=== PATIENT | female | born 1990 | race Caucasian/White ===

== ENCOUNTER 2018-04-11 12:08 | Inpatient (IN) | payer OTHER, MEDICAID ==
[~2018-04-11] VITALS: Ht 180.3 cm; Wt 100.7 kg
[~2018-04-11 12:08] MED LIST: FOLI1 PO; MULT-1238 PO; OLAN5TAB5 PO
[2018-04-11 13:41] VITALS: BP 106/73
[2018-04-11] MEDS ORDERED: HALOPERIDOL 5 MG TABLET PO PRN (14:15)
[2018-04-11] MEDS ORDERED: ZOLPIDEM TARTRATE 10 MG TABLET PO PRN (14:15)
[2018-04-11] MEDS ORDERED: LORazepam 2 MG TABLET PO PRN (14:15)
[2018-04-11] MEDS ORDERED: DIVA500T35 PO (15:01)
[2018-04-11] MEDS ORDERED: QUET200T PO (15:01)
[2018-04-11] MEDS ORDERED: PNEUMOCOCCAL VACCINE POLYVALENT 0.5 ML VIAL [PPSV23] IM ONE (15:15)
[2018-04-11 16:19] VITALS: BP 116/80
[2018-04-11] MEDS: DIVALPROEX SODIUM 500 MG ER TABLET PO SCH (20:37)
[2018-04-12 01:50] VITALS: BP 102/61
[2018-04-12 08:30] VITALS: BP 106/60
[2018-04-12] MEDS: QUEtiapine FUMARATE 200 MG TABLET PO SCH ×2 (08:35→16:34)
[2018-04-12] MEDS: NICOTINE 14 MG/24 HOUR PATCH TD SCH (08:35)
[2018-04-12 08:50] LABS: CHOL/HDL RATIO 2.1 (3.9-5.7); CHOLESTEROL 111 mg/dL (131-200); FREE T4 (FREE THYROXINE) 1.24 ng/dL (0.76-1.46); HCG,QUANTITATIVE < 1 mIU/mL (0-6); HDL CHOLESTEROL 54 mg/dL (40-60); LDL CHOL (CALC.) 41 mg/dL (0-130); THYROID STIMULATING HORMONE 0.52 uIU/mL (0.36-3.74); TRIGLYCERIDES 79 mg/dL (15-150)
[2018-04-12 09:12] LABS: HEMOGLOBIN A1C 5.7 % (4.5-6.2)
[2018-04-12 16:15] VITALS: BP 104/60
[2018-04-12] MEDS: DIVALPROEX SODIUM 500 MG ER TABLET PO SCH (20:40)
[2018-04-13 01:17] VITALS: BP 103/62
[2018-04-13 08:06] VITALS: BP 104/71
[2018-04-13] MEDS: QUEtiapine FUMARATE 200 MG TABLET PO SCH ×2 (08:35→20:33)
[2018-04-13] MEDS: NICOTINE 14 MG/24 HOUR PATCH TD SCH (08:46)
[2018-04-13 16:03] VITALS: BP 109/60
[2018-04-13] MEDS: DIVALPROEX SODIUM 500 MG ER TABLET PO SCH (20:33)
[2018-04-14 06:16] VITALS: BP 102/60
[2018-04-14 07:55] LABS: BASOPHILS % (AUTO) 0.9 % (0.0-2.0); EOSINOPHILS % (AUTO) 4.2 % (1.0-6.0); HEMATOCRIT 36.9 % (36-46); HEMOGLOBIN 12.5 g/dL (12.0-16.0); LYMPHOCYTES # (AUTO) 1.7 K/uL (1.0-4.8); LYMPHOCYTES % (AUTO) 26.9 % (22.0-44.0); MEAN CORPUSCULAR HGB CONC 33.9 G/dL (31.0-37.0); MEAN CORPUSCULAR VOLUME 91 fL (80-100); MONOCYTES # (AUTO) 0.3 K/uL (0.1-1.0); MONOCYTES % (AUTO) 5.6 % (2.0-9.0); NEUTROPHILS # (AUTO) 3.9 K/uL (1.8-7.7); NEUTROPHILS % (AUTO) 62.4 % (40.0-70.0); PLATELET COUNT (AUTO) 260 K/uL (150-450); RED BLOOD CELL COUNT(AUTO) 4.03 MIL/uL (4.00-5.20); RED CELL DISTRIBUTION WIDTH 14.8 % (11.5-14.5)
[2018-04-14 08:23] VITALS: BP 115/68
[2018-04-14 08:29] LABS: ALANINE AMINOTRANSFERASE 18 U/L (12-78); ALBUMIN 3.2 g/dL (3.4-5.0); ALKALINE PHOSPHATASE 54 U/L (46-116); ANION GAP 8 mmol/L (8-16); ASPARTATE AMINOTRANSFERASE 8 U/L (15-37); BILIRUBIN,TOTAL 0.2 mg/dL (0.1-1.0); CARBON DIOXIDE 27 mmol/L (22-29); CHLORIDE 107 mmol/L (98-107); CREATININE 0.73 mg/dL (0.60-1.30); GLOMERULAR FILTR. RATE CALC > 60 mL/min (>60); GLUCOSE,RANDOM 84 mg/dL (70-110); SODIUM SERUM 142 mmol/L (136-145); TOTAL PROTEIN, SERUM 6.5 g/dL (6.4-8.2); UREA NITROGEN, BLOOD 15 mg/dL (7-18); VALPROIC ACID 31 mcg/mL (50-100)
[2018-04-14] MEDS: QUEtiapine FUMARATE 200 MG TABLET PO SCH ×2 (08:32→20:11)
[2018-04-14] MEDS: NICOTINE 14 MG/24 HOUR PATCH TD SCH (08:38)
[2018-04-14 16:08] VITALS: BP 118/69
[2018-04-14] MEDS: DIVALPROEX SODIUM 500 MG ER TABLET PO SCH (20:11)
[2018-04-15 06:20] VITALS: BP 125/60
[2018-04-15 08:30] VITALS: BP 100/61
[2018-04-15] MEDS: QUEtiapine FUMARATE 200 MG TABLET PO SCH ×2 (08:49→20:30)
[2018-04-15] MEDS: NICOTINE 14 MG/24 HOUR PATCH TD SCH (09:00)
[2018-04-15 16:03] VITALS: BP 108/61
[2018-04-15] MEDS: DIVALPROEX SODIUM 500 MG ER TABLET PO SCH (20:30)
[2018-04-16 04:59] VITALS: BP 114/18
[2018-04-16 08:13] VITALS: BP 104/61
[2018-04-16] MEDS: QUEtiapine FUMARATE 200 MG TABLET PO SCH ×2 (08:40→20:29)
[2018-04-16] MEDS: NICOTINE 14 MG/24 HOUR PATCH TD SCH (08:42)
[2018-04-16 16:07] VITALS: BP 105/60
[2018-04-16] MEDS: DIVALPROEX SODIUM 500 MG ER TABLET PO SCH (20:30)
[2018-04-17 05:54] VITALS: BP 110/68
[2018-04-17] MEDS: QUEtiapine FUMARATE 200 MG TABLET PO SCH ×2 (08:16→20:31)
[2018-04-17] MEDS: NICOTINE 14 MG/24 HOUR PATCH TD SCH (08:18)
[2018-04-17 09:01] VITALS: BP 115/74
[2018-04-17 16:48] VITALS: BP 111/67
[2018-04-17] MEDS: DIVALPROEX SODIUM 500 MG ER TABLET PO SCH (20:31)
[2018-04-18 06:44] VITALS: BP 100/60
[2018-04-18 08:00] VITALS: BP 113/63
[2018-04-18] MEDS: QUEtiapine FUMARATE 200 MG TABLET PO SCH ×2 (08:08→20:29)
[2018-04-18] MEDS: NICOTINE 14 MG/24 HOUR PATCH TD SCH (08:19)
[2018-04-18] MEDS ORDERED: FLUoxetine HCL 20 MG CAPSULE PO SCH (09:00)
[2018-04-18 16:11] VITALS: BP 105/60
[2018-04-18] MEDS: DIVALPROEX SODIUM 500 MG ER TABLET PO SCH (20:29)
[2018-04-19 06:06] VITALS: BP 100/61
[2018-04-19 08:18] VITALS: BP 117/68
[2018-04-19] MEDS: FLUoxetine HCL 20 MG CAPSULE PO SCH (08:26)
[2018-04-19] MEDS: QUEtiapine FUMARATE 200 MG TABLET PO SCH (08:26)
[2018-04-19 16:10] VITALS: BP 116/74
[2018-04-19] MEDS: DIVALPROEX SODIUM 500 MG ER TABLET PO SCH (20:04)
[2018-04-19] MEDS: QUEtiapine FUMARATE 300 MG TABLET PO SCH (20:05)
[2018-04-20 03:45] VITALS: BP 117/64
[2018-04-20 08:17] VITALS: BP 104/60
[2018-04-20] MEDS: FLUoxetine HCL 20 MG CAPSULE PO SCH (08:22)
[2018-04-20] MEDS: QUEtiapine FUMARATE 200 MG TABLET PO SCH (08:22)
[2018-04-20 16:09] VITALS: BP 113/75
[2018-04-20] MEDS: QUEtiapine FUMARATE 300 MG TABLET PO SCH (20:23)
[2018-04-20] MEDS: DIVALPROEX SODIUM 500 MG ER TABLET PO SCH (20:24)
[2018-04-21 01:00] VITALS: BP 113/78
[2018-04-21 08:28] VITALS: BP 124/73
[2018-04-21] MEDS: QUEtiapine FUMARATE 200 MG TABLET PO SCH (08:30)
[2018-04-21] MEDS: FLUoxetine HCL 20 MG CAPSULE PO SCH (08:31)
[2018-04-21 16:06] VITALS: BP 106/68
[2018-04-21] MEDS: DIVALPROEX SODIUM 500 MG ER TABLET PO SCH (20:14)
[2018-04-21] MEDS: QUEtiapine FUMARATE 300 MG TABLET PO SCH (20:14)
[2018-04-22 00:08] VITALS: BP 131/69
[2018-04-22] MEDS: QUEtiapine FUMARATE 200 MG TABLET PO SCH (08:07)
[2018-04-22] MEDS: FLUoxetine HCL 20 MG CAPSULE PO SCH (08:07)
[2018-04-22 08:09] VITALS: BP 132/76
[2018-04-22 16:17] VITALS: BP 104/69
[2018-04-22] MEDS: DIVALPROEX SODIUM 500 MG ER TABLET PO SCH (20:06)
[2018-04-22] MEDS: QUEtiapine FUMARATE 300 MG TABLET PO SCH (20:06)
[2018-04-23 05:56] VITALS: BP 122/78
[2018-04-23] MEDS: QUEtiapine FUMARATE 200 MG TABLET PO SCH (08:14)
[2018-04-23] MEDS: FLUoxetine HCL 20 MG CAPSULE PO SCH (08:14)
[2018-04-23] MEDS ORDERED: FLUO-191 PO (08:27)
[2018-04-23] MEDS ORDERED: QUET300T2 PO (08:27)
[2018-04-23] MEDS ORDERED: DIVA500T35 PO (08:27)
[2018-04-23] MEDS ORDERED: QUET200T PO (08:27)
[2018-04-23 08:30] VITALS: BP 109/86
== END 2018-04-23 13:25 | disposition home or self-care (01) | DRG 885 ==
LOC: B2X 15:02
PROVIDERS: ADMIT Psychiatry & Neurology Psychiatry; ATTEND Psychiatry & Neurology Psychiatry
DX: F25.1 Schizoaffective disorder, depressive type (principal); R45.851 Suicidal ideations; F15.90 Other stimulant use, unspecified, uncomplicated; F60.3 Borderline personality disorder; F41.9 Anxiety disorder, unspecified; F17.200 Nicotine dependence, unspecified, uncomplicated; Z71.6 Tobacco abuse counseling; Z82.49 Family history of ischemic heart disease and other diseases of the circulatory system; Z28.21 Immunization not carried out because of patient refusal
CPT/HCPCS: 83036; 84439; 84443; 90471